=== PATIENT | female | born 2005 | race Caucasian/White ===

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

== ENCOUNTER 2024-07-04 08:41 | Emergency (ER) | payer BC, OTHER ==
[~2024-07-04] VITALS: Ht 154.9 cm; Wt 52.2 kg
[2024-07-04 09:07] LABS: BASOPHILS # (AUTO) 0.1 K/UL (0.0-0.2); DIFFERENTIAL COMMENT 1; EOSINOPHILS # (AUTO) 0.1 K/uL (0.0-0.7); EOSINOPHILS % (AUTO) 1.9 % (0.0-7.0); HEMATOCRIT 38.9 % (31.2-41.9); HEMOGLOBIN 12.7 g/dL (10.9-14.3); LYMPHOCYTES # (AUTO) 1.4 K/uL (0.8-4.8); MEAN CORPUSCULAR HEMOGLOBIN 28.9 uug (24.7-32.8); MEAN CORPUSCULAR HGB CONC 33 g/dL (32.3-35.6); MEAN CORPUSCULAR VOLUME 88.6 fL (75.5-95.3); MONOCYTES # (AUTO) 0.4 K/uL (0.1-1.30); MONOCYTES % (AUTO) 6.9 % (0-11); NEUTROPHILS # (AUTO) 3.7 K/uL (1.8-8.9); NEUTROPHILS % (AUTO) 65.2 % (31.5-64.5); PLATELET COUNT (AUTO) 251 K/uL (179-408); RED BLOOD CELL COUNT(AUTO) 4.39 MIL/uL (3.63-4.92); RED CELL DISTRIBUTION WIDTH 14.2 % (12.3-17.7); WHITE BLOOD COUNT (AUTO) 5.7 K/uL (3.8-11.8)
[2024-07-04 09:18] LABS: CALCIUM 8.9 mg/dL (8.5-10.1); CARBON DIOXIDE 26 mmol/L (21-32); CHLORIDE 104 mmol/L (98-107); CREATININE 0.6 mg/dL (0.6-1.3); GLUCOSE 108 mg/dL (74-106); POTASSIUM 3.9 mmol/L (3.5-5.1); SODIUM SERUM 140 mmol/L (136-145); UREA NITROGEN, BLOOD 13 mg/dL (7-18)
[2024-07-04 09:26] LABS: ALANINE AMINOTRANSFERASE 18 U/L (14-59); ALKALINE PHOSPHATASE 58 U/L (50-136); ASPARTATE AMINOTRANSFERASE 10 U/L (15-37); BILIRUBIN,DIRECT 0.1 mg/dL (0.0-0.2); BILIRUBIN,TOTAL 0.3 mg/dL (0.2-1.0); TOTAL PROTEIN, SERUM 7.4 g/dL (6.4-8.2)
[2024-07-04 09:48] VITALS: BP 106/88; O2SAT 100
[2024-07-04 09:49] LABS: *BILIRUBIN,URIN NEGATIVE (NEGATIVE); *CLARITY,URINE CLEAR (CLEAR); *COLOR,URINE YELLOW (YELLOW); *KETONES,URINE NEGATIVE (NEGATIVE); *PROTEIN,URINE NEGATIVE (NEGATIVE); *UROBILINOGEN,URINE 0.2 E.U./dl (NORMAL); LEUKOCYTE ESTERASE ,URINE NEGATIVE (NEGATIVE); NITRITE, URINE NEGATIVE (NEGATIVE); UGLUCOSE NEGATIVE (NEGATIVE)
[2024-07-04 09:55] LABS: *BLOOD, URINE TRACE (NEGATIVE); *URINE HCG, QUAL NEGATIVE (NEGATIVE)
[2024-07-04 10:10] LABS: BACTERIA,URINE MODERATE /HPF (NONE SEEN); RBC,URINE 0-3 /HPF (0-3); SQUAMOUS EPITHELIAL CELL,UR MANY /HPF (NONE SEEN); WBC,URINE 0-3 /HPF (0-3)
== END 2024-07-04 09:50 | disposition home or self-care (01) ==
LOC: ER 08:41
DX: R55 Syncope and collapse (principal); R10.2 Pelvic and perineal pain
CPT/HCPCS: 36415; 70450; 84484; 84703; 85025; 85730; 93005; A4606; A4663